=== PATIENT | female | born 1970 | race Caucasian/White ===

== ENCOUNTER 2017-09-05 14:16 | Emergency (ER) | payer SELFPAY ==
[~2017-09-05] VITALS: Ht 165.1 cm; Wt 57.2 kg
--- NOTE | 2017-09-05 14:35 | NUR ---
Pt.was seen by ,family at bedside.
[2017-09-05 14:52] LABS: BASOPHILS % (AUTO) 0.3 % (0.0-2.0); EOSINOPHILS # (AUTO) 0.3 K/uL (0.0-0.7); EOSINOPHILS % (AUTO) 4.1 % (0.0-7.0); HEMATOCRIT 42.1 % (31.2-41.9); HEMOGLOBIN 14.6 g/dL (10.9-14.3); LYMPHOCYTES # (AUTO) 1.5 K/uL (20.0-40.0); LYMPHOCYTES % (AUTO) 18.7 % (20.5-51.5); MEAN CORPUSCULAR HGB CONC 35 g/dL (32.3-35.6); MEAN CORPUSCULAR VOLUME 92.6 fL (75.5-95.3); MONOCYTES # (AUTO) 0.5 K/uL (2.0-10.0); MONOCYTES % (AUTO) 5.9 % (0.0-11.0); NEUTROPHILS # (AUTO) 5.7 K/uL (1.8-8.9); PLATELET COUNT (AUTO) 236 K/uL (179-408); RED BLOOD CELL COUNT(AUTO) 4.55 MIL/uL (3.63-4.92)
[2017-09-05 15:01] LABS: CREATININE 0.8 mg/dL (0.6-1.3); POTASSIUM 3.4 mmol/L (3.5-5.1)
[2017-09-05 15:07] LABS: BILIRUBIN,TOTAL 0.6 mg/dL (0.2-1.0); MAGNESIUM 2.1 mg/dL (1.8-2.4); TOTAL PROTEIN, SERUM 6.7 g/dL (6.4-8.2)
[2017-09-05] MEDS ORDERED: ASPIRIN 81 MG TAB.CHEW PO ONE (15:16)
--- NOTE | 2017-09-05 15:30 | NUR ---
Pt.refuse to start IV.
[2017-09-05] MEDS ORDERED: ASPIRIN 81 MG TAB.CHEW ONE (15:38)
--- NOTE | 2017-09-05 15:38 | NUR ---
Pt.in bed,no s/s of distress denies any pain,c/o on gener.weakness.
[2017-09-05] MEDS ORDERED: POTASSIUM CHLORIDE 20 MEQ TAB.PRT.SR PO ONE (16:01)
--- NOTE | 2017-09-05 16:07 | NUR ---
Pt.was updated by with EKG resolt,family at bedside.
[2017-09-05 16:18] VITALS: BP 120/73
[2017-09-05] MEDS ORDERED: POTASSIUM CHLORIDE 20 MEQ TAB.PRT.SR ONE (16:21)
== END 2017-09-05 16:27 | disposition home or self-care (01) ==
LOC: ER 14:16
DX: R07.9 Chest pain, unspecified (principal); R53.1 Weakness; R06.02 Shortness of breath
CPT/HCPCS: 36415; 70030-TC; 71045; 83735; 85025; 85610; 85651; 86140; 93005; A4663